=== PATIENT | female | born 1955 | race Caucasian/White ===

== ENCOUNTER → 2020-12-09 11:02 | Outpatient (BNVA) | payer MEDICARE, BC, MEDICAID, SELFPAY | PROVIDERS: PCP Internal Medicine; Visit Provider Internal Medicine | DX: R94.31 Abnormal electrocardiogram [ECG] [EKG] (principal); R06.02 Shortness of breath; J44.9 Chronic obstructive pulmonary disease, unspecified | CPT/HCPCS: 93005; 99202 ==

== ENCOUNTER → 2020-12-14 07:52 | Outpatient (REF) | payer MEDICARE, BC, MEDICAID, SELFPAY ==
--- NOTE | ~2020-12-14 | NM_ITS ---
Myocardial perfusion study Indication: Shortness of breath evaluate for myocardial ischemia Technique: The patient was brought in for a Lexiscan perfusion study on 12/14/2020. Patient performed low-level exercise and was injected 0.4 mg of Lexiscan intravenously. Within a minute of injection, 25 mCi of sestamibi was given intravenously. Images were obtained using the SPECT gamma camera interlaced with the gating device. Images were obtained in supine position. Resting perfusion study was performed on 12/15/2020. Patient was administered 25 mCi of sestamibi intravenously at rest. Images were then obtained in supine position. Images obtained with and without CT attenuation. Total DLP 59mGy-cm. Images were processed with the software and compared side to side in short axis, horizontal long axis and vertical long axis views. Findings: The stress perfusion study showed both non attenuated attenuated corrected images show mostly normal uptake of radiotracer in all segments of LV myocardium. Is suggestion of left ventricle hypertrophy. The gated study shows normal LV systolic function with calculated LVEF of 69%. LV cavity is normal in size. The gated study shows normal systolic wall thickening and contraction of segments. Resting study shows normal uptake in all segments of LV myocardium. Gating at rest reveals normal systolic wall motion with ejection fraction at greater than 70 %. The findings are consistent with normal myocardial perfusion. NM/NM cathryn perf SPECT rest & str Impression: 1. Myocardial perfusion imaging study shows normal myocardial perfusion 2. Gated LVEF is 69% 3. Transient ischemic dilatation not present EKG is nondiagnostic for ischemia
--- NOTE | 2020-12-14 08:04 | CA_ITS ---
Transthoracic Echocardiogram Patient (Last, First, Middle): Yvette Morales, Gender: Female Date of : 1955 Age: 65 Procedure Date: 12/14/2020 Procedure Type: Transthoracic Echocardiogram Location: OP Height: 172.72 cm Weight: 56.7 kg BSA: 1.67 m2 Heart Rate: bpm BP: 135 / 80 mmHg Paratransit Driver: ANA LUISA Reis MD: Jered Linder MD Care Assistant: Erasmo Martinez MD Symptoms: I25.10 - Atherosclerotic heart disease of [place] coronary artery without angina pectoris Study Quality: Fair ECG Rhythm: Sinus Conclusions: - 1. Normal LV systolic function with grade 1 diastolic dysfunction 2. Normal cardiac valvular Doppler 3. Normal RV systolic pressure 4. No pericardial effusion Findings Left Ventricle Normal left ventricular size, thickness, and systolic function. The visually estimated ejection fraction is between 60-65%. Spectral Doppler is indicative of an impaired relaxation filling pattern. E/E prime ratio is <8, consistent with normal filling pressures. Evidence suggests grade I (mild) diastolic dysfunction. Right Ventricle Normal right ventricular cavity size and systolic function. Atria Both atria are normal in size. There is no evidence of interatrial shunt. Aortic Valve Normal aortic valve structure and function. There is no aortic valve stenosis. There is no aortic valve regurgitation. Mitral Valve Normal mitral valve structure and function. There is trace mitral valve regurgitation. There is no mitral valve stenosis. Pulmonic Valve The pulmonic valve is likely normal. There is trace pulmonic valve regurgitation. Tricuspid Valve Normal tricuspid valve structure. There is trace tricuspid valve regurgitation. The right ventricular systolic pressure is normal. The right ventricular systolic pressure is 20 mmHg. Normal right atrial pressure. There is no evidence of pulmonary hypertension. Great Vessels All visible segments of the aorta are normal in size. The pulmonary artery was not well visualized. Venous The inferior vena cava is normal in size and collapses greater than 50% with inspiration. Pericardium/Pleural There is no evidence of pericardial effusion. Prior Study Comparison No previous study in the last 5 years for comparison Measurements 2D Linear Measurements IVSd: 0.73 0.6-0.9/0.6-1.0 cm LVIDd: 3.24 3.9-5.3/4.2-5.9 cm LVIDs: 2.09 2.0-3.6 cm LVPWd: 0.82 0.7-1.1 cm Ao Root: 2.83 2.1-3.5 cm LV Mass: 79.27 67-162/88-224 g LVOT Diam: 2.02 3.0+(-)1.3 cm Mitral Valve MV Pk E: 0.80 MV PK A: 1.14 MV Decel Time: 288.70 E/A: 0.71 E'Lateral: 0.07 E'Medial: 0.08 Decel [place]: 2.78 Aortic Valve AoV Pk Laz: 1.34 AoV Mn Laz: 0.90 AoV VTI: 0.22 AoV Pk Grad: 7.15 Aov Mn Grad: 3.52 LVOT LVOT Pk Laz: 1.27 LVOT Mn Laz: 0.80 LVOT VTI: 0.21 LVOT Pk Grad: 6.50 LVOT Mn Grad: 3.03 LVOT Diam: 2.02 LVOT Area: 3.20 Diastolic Function MV Pk E: 0.80 MV Pk A: 1.14 E/A: 0.71 E'Medial: 0.08 E' Laterial: 0.07 Tricuspid Valve TR Pk Laz: 2.04 TR Pk Grad: 16.60 RA Press: 3.00 RVSP: 20.00 Great Vessels Aorta Ao Root-2D: 2.83 2.0-3.7 cm Ao Asc: 2.73 2.1-3.4 cm Ao Arch: 3.21 Updated in Other Vendor System with Status of Final Erasmo Martinez MD electronically signed on 12/14/2020 5:04:23 PM with status of Final
--- NOTE | 2020-12-14 08:04 | CA_ITS ---
Acquisition Time: 2020-12-14 08:40:51 Total Exercise Time: 00:02:00 Test Indications: Dyspnea Medications: ADVAIR ALPRAZOLAM BUPROPION ALBUTEROL ELLIPTA VENLAFAXINE Protocol: LEXISCAN Max HR: 130 BPM 84% of Pred: 153 BPM Max BP: 132/074 mmHG Max Work Load: 1.0 METS Pharmacological stress test using Lexiscan while sitting. Pt reports SOB after Lexiscan, reversed with Aminophyline 75 mg IV. Denies any anginal sx. EKG with T wave inversions inferiorly anteriorly and laterally before Lexiscan injection that became deeper after the injection. non-diagnostic for ischemia. Nuclear images to follow. Normotensive response to test. Test reviewed with Dr. Martinez. Referred By: Jered Linder Overread By: Sinai Dill NP
[2020-12-14 10:20] LABS: MANUAL DIFF FLAG NO
[2020-12-14 10:23] LABS: Basophils Percent Auto 0.3 % (0-2); Eosinophils Absolute Auto 0.1 X10*3/uL (0.0-0.4); Hematocrit 45.7 % (37-47); Hemoglobin 14.7 g/dl (12.0-16.0); Imm Gran Abs Auto 0.05 X10*3/uL (0.00-0.03); Imm Gran Pct Auto 0.4 % (0.0-0.4); Lymphocytes Absolute Auto 3.7 X10*3/uL (1.2-4.9); Lymphocytes Percent Auto 32.7 % (20-40); Mean Corpuscular HGB Conc 32.2 g/dl (31.0-35.0); Mean Corpuscular Hemoglobin 30.4 pg (27.0-33.0); Mean Corpuscular Volume 94.6 fL (80-98); Mean Platelet Volume 10.4 fL (9.4-12.3); Monocytes Absolute Auto 0.9 X10*3/uL (0.1-1.2); Monocytes Percent Auto 7.8 % (2-11); Neutrophils Absolute Auto 6.6 X10*3/uL (2.0-8.3); Neutrophils Percent Auto 57.8 % (45-73); Platelet Count 309 X10*3/uL (160-400); Red Blood Count 4.83 X10*6/uL (4.20-5.50); Red Cell Distribution Width 13.2 % (11.0-16.0); White Blood Count 11.4 X10*3/uL (4.8-10.8)
[2020-12-14 10:49] LABS: Glucose Urine UA NEG (NEG); Leukocyte Esterase Urine TRACE (NEG); Nitrite Urine NEG (NEG); Specific Gravity - Urine >= 1.030 (1.005-1.025); UACC Culture Trigger YES; Urine Blood NEG (NEG); Urine Ketones 5 MG/DL (NEG); Urine Protein TRACE MG/DL (NEG-TRACE)
[2020-12-14 10:57] LABS: Alanine Aminotransferase 10 U/L (0-31); Albumin Level 4.4 g/dL (3.5-5.0); Alkaline Phosphatase 71 U/L (39-117); Anion Gap 13 (12-20); Aspartate Amino Transferase 12 U/L (5-31); Bilirubin Total 0.4 mg/dL (0.0-1.0); Blood Urea Nitrogen 14 mg/dL (9-16); Calcium 9.3 mg/dL (8.4-10.2); Carbon Dioxide 30 mmol/L (22-29); Chloride 103 mmol/L (96-108); Cholesterol 262 mg/dL; Estimated Glomerular Filt Rate > 60; Glucose Fasting 119 mg/dL (60-99); HDL Cholesterol 53 mg/dL; LDL Cholesterol Calculated 181 mg/dl; Potassium 3.9 mmol/L (3.3-5.1); Sodium 142 mmol/L (135-145); Total Protein 7.4 g/dL (6.5-8.0); Triglycerides 144 mg/dL
[2020-12-14 10:59] LABS: Appearance Urine HAZY; Color Urine YELLOW
[2020-12-14 11:19] LABS: Bacteria Urine TRACE /LPF; Mucus Urine 3+ /LPF; Squamous Epithelial Cell Urine 2+ /LPF
[2020-12-14 11:22] LABS: Free T4 (Free Thyroxine) 0.82 ng/dL (0.71-1.85); Thyroid Stimulating Hormone 3.89 uIU/mL (0.32-4.0); Vitamin D 25-OH Total 7.1 ng/mL (>30)
== END ==
LOC: HO.CARD 07:52
PROVIDERS: Absent Provider Internal Medicine; PCP Internal Medicine; Visit Provider Internal Medicine
DX: I25.10 Atherosclerotic heart disease of native coronary artery without angina pectoris (principal); R06.02 Shortness of breath; R94.31 Abnormal electrocardiogram [ECG] [EKG]; R32 Unspecified urinary incontinence; R06.00 Dyspnea, unspecified; J44.9 Chronic obstructive pulmonary disease, unspecified; E03.9 Hypothyroidism, unspecified; E78.00 Pure hypercholesterolemia, unspecified; E55.9 Vitamin D deficiency, unspecified; F17.200 Nicotine dependence, unspecified, uncomplicated
CPT/HCPCS: 36415; 78452; 80053; 80061; 81001; 81003; 82306; 84439; 84443; 85025; 87086; 93017; 93306; J0280; J2785

== ENCOUNTER 2021-12-01 13:40 | Outpatient (REF) | payer MEDICARE, BC, MEDICAID, SELFPAY ==
--- NOTE | ~2021-12-01 | XR_ITS ---
EXAMINATION: XR CHEST CLINICAL INFORMATION: R06.02 - Shortness of breath COMPARISON: Chest radiographs 08/11/2015. TECHNIQUE: 2 views of the chest were obtained. FINDINGS: There is small vague opacity left lateral base. This could represent focal pneumonic process. Recommend follow-up chest radiograph and 4-8 weeks to confirm clearing. The remainder lungs are clear. The costophrenic sulci are well-defined. There is no effusion. The heart is normal in size. The vascularity is normal. No vascular congestion. Mild hyperinflation similar to prior remote study. The hilar and mediastinal contours and visualized bony structures are stable. XR/XR chest 2V IMPRESSION: -Small vague opacity left lateral base, possibly focal pneumonic process. Recommend follow-up chest radiograph in 4-8 weeks to confirm clearing. -Chronic hyperinflation.
== END 2021-12-01 13:41 | disposition home or self-care (01) ==
LOC: HO.XRAY 13:40
PROVIDERS: PCP Internal Medicine; Visit Provider Internal Medicine
DX: R06.02 Shortness of breath (principal)
CPT/HCPCS: 71046